=== PATIENT | male | born 1980 | race Caucasian/White ===

== ENCOUNTER 2016-11-27 10:37 | Emergency (ER) | payer BC, OTHER ==
[2016-11-27] MEDS ORDERED: Sodium Chloride 0.9% 1,000 ML PRIMARY IV ONE (10:47)
[2016-11-27] MEDS ORDERED: LORazepam 2 MG/1 ML VIAL IVP ONE (10:47)
[2016-11-27] MEDS ORDERED: KETOROLAC 15 MG/1 ML VIAL IVP ONE (10:47)
--- NOTE | 2016-11-27 10:53 | PDOC ---
Shoulder Injury/Pain HPI - General Chief Complaint: Upper Extremity Problem/Injury Stated Complaint: LEFT SHOULDER PAIN/COW HIT GATE & HIT HIM Date Seen by Provider: 11/27/16 Time Seen by Provider: 10:48 Source: POSITIVE: Patient, Spouse Exam Limitations: POSITIVE: No limitations Nurse's Notes Reviewed & Considered: Yes - History of Present Illness Initial Comments: This is a very pleasant 36-year-old male complaining of left shoulder pain. Patient was working [employer] yesterday when he was slammed on his left shoulder by a gate while trying to stop cow running through the gate. This knocked him to the ground and onto his left arm and shoulder. He now has complaints of pain in his left upper trapezius muscle, left clavicle, left lateral shoulder. He has a right black eye. He has some abrasion on his left elbow. In addition he is complaining of some anterior chest wall pain on the left side at the level of the inferior pectoralis major muscle. He took 600 mg of ibuprofen approximately 45 minutes prior to presentation here in the emergency department , and ibuprofen much earlier this morning. He denies headache, changes in his vision, no head injuries during this incident. He denies any sore throat. No shortness of breath. No nausea vomiting or diarrhea. No abdominal pain. No hematuria or dysuria. 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[place] Context: REPORTS: Fall, Direct Blow Associated Symptoms: REPORTS: Other (Pain with movement.) Any Prior Injuries Related to Current Complaint?: No - Patient Home Medications Home Medications: Home Medications Ibuprofen 200 mg ORAL 3-4 tabs QH PRN tab 08/22/11 Escitalopram Oxalate [Lexapro] 20 mg ORAL QD #90 tab 06/18/15 Pantoprazole Sodium 40 mg ORAL QD #90 tab 06/18/15 - Patient Allergies Allergies/Adverse Reactions: Allergies Allergy/AdvReac Type Severity Reaction Status Date / Time No Known Allergies Allergy Verified 11/27/16 10:39 Past Medical History - heen HEENT History: Denies History Cardiovascular History: Denies History Respiratory History: Denies History Gastrointestinal History: Denies History Genitourinary History: Denies History Endocrine History: Denies History Musculoskeletal History: Back Pain Additional Musculoskeletal History: BACK PAIN FROM LIFTING IRON 1 MONTH AGO, PAIN WILL NOT GO AWAY Neurological History: Denies History Blood Disorders: Denies History Psychiatric History: Anxiety Disorders History of Sexually Transmitted Diseases: No Cancer History: Denies History History of Other Communicable Diseases: No Alcohol Use: Occasionally Anesthesia Reactions: No Malignant Hyperthermia: No ROS - Limitations ROS Limitations: No Limitations Constitution: REPORTS: Denies Symptoms Cardiovascular: REPORTS: Chest Pain Respiratory: REPORTS: Denies Resp Symptoms Neurological: REPORTS: Denies Neuro Symptoms Gastrointestinal: REPORTS: Denies GI Symptoms Endocrine: REPORTS: Denies Symptoms Musculoskeletal: REPORTS: Neck Pain, Other (Left shoulder) Genitourinary: REPORTS: Denies Symptoms Eyes: REPORTS: Denies Symptoms ENT: REPORTS: Denies Symptoms Skin: REPORTS: Denies Skin Symptoms Lympathic: REPORTS: Denies Lympathic Symptoms Immunologic: POSITIVE: Denies Symptoms Psychiatric: POSITIVE: Denies Psych Symptoms Shoulder Injury/Pain Exam - General Appearance General Appearance: POSITIVE: Alert, Cooperative, No Acute Distress - Upper Extremity Shoulder: POSITIVE: Full ROM, No Dislocation, Soft-Tissue Tenderness (Left superior trapezius muscle and tenderness over the left clavicle, distal one third. No clavicle deformity is appreciated.) Upper Extremity: POSITIVE: Swelling (Left elbow with abrasions), Ecchymosis Neuro/Vascular: POSITIVE: Sensation Normal, Motor Normal Skin: POSITIVE: Warm, Dry - HEENT HEENT: POSITIVE: Head Inspection Nml, Eyes Inspection Nml, Ears Inspection Nml, Nose Inspection Nml, Oral/Dental Inspect. Nml, Pharynx Inspect. Nml, PERRL, EOMI - Neck / Back Neck/Back: POSITIVE: Tenderness (Superior trapezius on the left no vertebral tenderness is appreciated) - Respiratory / CVS Respiratory / CVS: POSITIVE: Chest Non Tender, No Ecchymosis, Breath Sounds Normal, No Respiratory Distress, Heart Sounds Normal, Regular Rate/Rhythm - Abdomen Abdomen: Soft: (All Quadrants), Normal Bowel Sounds: (All Quadrants), Denies Tenderness: (All Quadrants), No Splenomegaly: (All Quadrants), No Hepatomegaly: (All Quadrants), No Guarding: (All Quadrants), No Rebound: (All Quadrants), No Palpable Pulse: (All Quadrants), No [place]ale Mass: (All Quadrants), No Distention: (All Quadrants), No Rigidity: (All Quadrants) Shoulder Pain/Injury Progress - Results Reviewed by me Xrays/CTs/US Reviewed by me: Yes Discussed with Radiologist: Yes Lab Results Reviewed: Yes Lab Results:: Laboratory Results 11/27/16 Range/Units 11:09 WBC 8.51 (4.8-10.8) 10^3/uL RBC 4.79 (4.70-6.10) 10^6/uL Hgb 15.5 (14.0-18.0) g/dL Hct 43.0 (42.0-52.0) % MCV 89.8 (80-90) FL MCH 32.4 H (27-31) PG MCHC 36.0 (33-37) g/dL RDW Std Deviation 39.1 (39-50) fL RDW Coeff of Paula 12.1 (11.5-14.5) % Plt Count 190 (140-350) 10*3/uL MPV 9.9 (7.4-12.2) FL Immature Gran % (Auto) 0.1 (0-5) % Neut % (Auto) 55.5 (50-80) % Lymph % (Auto) 29.5 (10-50) % [place] % (Auto) 11.6 (5-15) % Eos % (Auto) 2.7 (0-8) % Baso % (Auto) 0.6 (0-1) % Immature Gran # (Auto) 0.01 10*3/UL Neut # (Auto) 4.72 10*3/UL Lymph # (Auto) 2.51 10*3/uL [place] # (Auto) 0.99 H (0.3-0.8) 10*3/UL Eos # (Auto) 0.23 10*3/UL Baso # (Auto) 0.05 10*3/UL WBC Morphology Comment Normal morphology (NORM) Plt Morphology Comment Normal morphology (NORM) RBC Morph Comment Normal morphology (NORM) PT 9.7 (9.7-11.4) secs INR 0.92 (0.00-5.90) N/A Sodium 138 (135-145) meq/L Potassium 3.8 (3.8-5.2) meq/L Chloride 104 (98-112) meq/L Carbon Dioxide 25 (23-33) meq/L Anion Gap 9 (5-20) BUN 19 (7-22) mg/dL Creatinine 0.9 (0.70-1.50) mg/dL Estimated GFR > 60 (>60 ml/min/1.73m(2)) BUN/Creatinine Ratio 21.11 H (6-20) Glucose 109 (78-110) mg/dL Calculated Osmolality 288.0 (267-292) mOsm/kg Calcium 8.9 (8.7-10.7) mg/dL Magnesium 2.0 (1.6-2.4) mg/dL Total Bilirubin 0.8 (0.3-1.2) mg/dL AST 21 (21-57) IU/L ALT 39 (21-72) IU/L Alkaline Phosphatase 79 (38-126) IU/L Total Protein 7.0 (6.1-8.0) g/dL Albumin 4.1 (3.5-4.8) g/dL Globulin 2.8 (2.50-4.10) g/dL Albumin/Globulin Ratio 1.40 (1.3-2.0) mg/g Rhythm Strip Interpretation: POSITIVE: Normal Sinus Rhythm, Normal Intervals, Normal [place], Normal QRS, Normal ST/T EKG Interpreted/Reviewed By Me:: Yes EKG Interpretation:: POSITIVE: Normal Sinus Rhythm - Patient's Progress Pain Medication Addressed: POSITIVE: Yes Re-Examine Time:: 11:53 Status: POSITIVE: Improved MDM / ED Course: Patient was examined, an IV started, blood drawn and sent to the laboratory for studies, EKG and radiographic examinations were also obtained. Findings: CBC is unremarkable, comprehensive metabolic is within normal limits. X-ray of his left shoulder shows no acute osseous abnormalities. Chest x-ray shows no acute cardiopulmonary decompensation. EKG is obtained and interpreted by me showing sinus rhythm. Assessment: Musculoskeletal pain related to trauma from interaction with livestock. Plan: Discharge home, Tylenol and ibuprofen as needed, baclofen is prescribed. Instructions for ice and heat packs, and follow up with primary care physician in 7-10 days if there is no improvement. Patient Care Time - Estimated PCT Patient Care Time (In Minutes): 30 Vital Signs - Recent Vital Signs Vital Signs: Vital Signs (Last 8 hours) Temp Pulse Pulse Resp BP Pulse Ox 11/27/16 10:50 57 L 11/27/16 10:37 97.1 F 75 17 134/94 94 - VS Reviewed Vital Signs Reviewed: Yes Discharge Clinical Impression: Shoulder strain Discharge Disposition: Discharged to Home Condition: Good Patient Instructions Given at Discharge: Shoulder Sprain (ED) Follow Up With: NONE,NONE [Primary Care Provider] -
[2016-11-27 10:54] VITALS: RESP 17; TEMP 97.1
--- NOTE | 2016-11-27 10:54 | EKG ---
[address] [address] Measurements Intervals [place] Rate: 57 P: 27 IA: 185 QRS: 58 QRSD: 104 T: 43 QT: 375 QTc: 368 Interpretive Statements SINUS BRADYCARDIA No previous ECG available for comparison Electronically Signed On 11-27-16 19:54:16 MDT by Reji Marroquin [email or web address]
[2016-11-27 11:21] LABS: BLOOD UREA NITROGEN 19 mg/dL (7-22); BUN/CREATININE RATIO 21.11 (6-20); CALCIUM 8.9 mg/dL (8.7-10.7); EST GLOMERULAR FILTRATION > 60 (>60 ml/min/1.73m(2)); HEMOGLOBIN 15.5 g/dL (14.0-18.0); RED BLOOD COUNT 4.79 10^6/uL (4.70-6.10); SERUM ALBUMIN 4.1 g/dL (3.5-4.8)
[2016-11-27 11:22] LABS: MEAN CORPUSCULAR HEMOGLOBIN 32.4 PG (27-31); MEAN CORPUSCULAR VOLUME 89.8 FL (80-90); MEAN PLATELET VOLUME 9.9 FL (7.4-12.2); NEUTROPHILS % (AUTO) 55.5 % (50-80)
[2016-11-27 11:25] LABS: BASOPHILS # (AUTO) 0.05 10*3/UL; BASOPHILS % (AUTO) 0.6 % (0-1); EOSINOPHILS # (AUTO) 0.23 10*3/UL; EOSINOPHILS % (AUTO) 2.7 % (0-8); LYMPHOCYTES # (AUTO) 2.51 10*3/uL; MONOCYTES # (AUTO) 0.99 10*3/UL (0.3-0.8); MONOCYTES % (AUTO) 11.6 % (5-15); NEUTROPHILS # (AUTO) 4.72 10*3/UL
[2016-11-27 11:26] LABS: PLATELET MORPHOLOGY COMMENT NORMAL MORPHOLOGY (NORM); RBC MORPHOLOGY COMMENT NORMAL MORPHOLOGY (NORM); WBC MORPHOLOGY COMMENT NORMAL MORPHOLOGY (NORM)
--- NOTE | 2016-11-27 11:28 | DI ---
PA /LATERAL CHEST X-RAY, 11/27/2016 10:47 AM : Clinical History: Chest pain Previous Exam: None at this facility. There is no acute soft tissue or bony abnormality. Heart size is normal. Lungs are clear. Mediastinal structures are normal. There are no pulmonary nodules. IMPRESSION: Normal chest x-ray.
--- NOTE | 2016-11-27 11:28 | DI ---
XR SHOULDER MIN 2VW,11/27/2016 10:47 AM: Clinical History: Left shoulder pain Previous Exam: None at this facility. Findings: Internal rotation and transscapular Y-view of the left shoulder are obtained, and demonstrate anatomi c alignment without fractures. The adjacent left lung and chest wall are unremarkable. Impression: No fracture.
== END 2016-11-27 12:06 | disposition home or self-care (01) ==
LOC: ER 10:37
DX: S46.912A Strain of unspecified muscle, fascia and tendon at shoulder and upper arm level, left arm, initial encounter (principal); R07.9 Chest pain, unspecified; M54.2 Cervicalgia; S00.11XA Contusion of right eyelid and periocular area, initial encounter; W55.22XA Struck by cow, initial encounter
CPT/HCPCS: 36415; 71020; 73030; 80053; 83735; 84484; 85025; 85610; 93005; 93010; 96361; 96374; 96375; 99283 ×2; J1885; J2060; J7030